=== PATIENT | female | born 1975 | race Caucasian/White ===

== ENCOUNTER 2019-02-11 14:11 | Emergency (ER) | payer OTHER ==
[~2019-02-11] VITALS: Ht 172.7 cm; Wt 118.8 kg
[~2019-02-11 14:11] MED LIST: DIOVAN160 M1 PO; LEVOXYL175 MCG PO; TOPROL XL50 MG PO
[2019-02-11] MEDS ORDERED: TRILIPIX45 MG (15:20)
== END 2019-02-11 21:10 | disposition home or self-care (01) ==
LOC: ER 14:11
DX: N20.1 Calculus of ureter (principal); N20.0 Calculus of kidney

== ENCOUNTER 2019-03-10 10:44 | Emergency (ER) | payer OTHER ==
[~2019-03-10] VITALS: Ht 165.1 cm; Wt 113.4 kg
[~2019-03-10 10:44] MED LIST changes: +TRILIPIX45 MG
[2019-03-10] MEDS ORDERED: AVAPRO300 MG (11:49)
[2019-03-10] MEDS ORDERED: GLUCOPHAGE XR750 MG (11:49)
[2019-03-10] MEDS ORDERED: AVALIDE 300-121 EACH (11:49)
== END 2019-03-10 16:17 | disposition home or self-care (01) ==
LOC: ER 10:44
DX: J11.1 Influenza due to unidentified influenza virus with other respiratory manifestations (principal)

== ENCOUNTER 2024-08-05 21:01 | Emergency (ER) | payer OTHER ==
[~2024-08-05] VITALS: Ht 160 cm; Wt 145.1 kg
[~2024-08-05 21:01] MED LIST changes: +AVALIDE 300-121 EACH; +AVAPRO300 MG; +GLUCOPHAGE XR750 MG
[2024-08-05] MEDS ORDERED: ONDANSETRON HCL 2 MG/ML VIAL ONE (21:43)
[2024-08-05] MEDS ORDERED: KETOROLAC TROMETHAMINE 60 MG VIAL IM ONE ×2 (21:43→21:45)
[2024-08-05] MEDS ORDERED: FAMOTIDINE/PF 20 MG/2 ML VIAL ONE (21:44)
[2024-08-05] MEDS ORDERED: 0.9 % SODIUM CHLORIDE 1,000 ML IV ONE (21:45)
[2024-08-05] MEDS ORDERED: ONDANSETRON HCL 2 MG/ML VIAL IV ONE (21:45)
[2024-08-05] MEDS ORDERED: FAMOtidine 10 MG/ML (4ML VIAL) IV ONE (21:45)
[2024-08-05 23:06] LABS: HEMATOCRIT 36.8 % (36.0-45.00); HEMOGLOBIN 12.1 g/dL (12.0-15.00); MEAN CELL VOLUME 89.2 fL (80.00-100.00); MEAN CORPUSCULAR HEMOGLOBIN 29.4 pg (27.00-32.0); MEAN CORPUSCULAR HGB CONC 32.9 g/dl (32.0-36.0); PLATELET COUNT 370 K/uL (150-450); RED BLOOD COUNT 4.13 M/uL (4.00-6.00); RED CELL DISTRIBUTION WIDTH 15.2 % (11.5-14.5)
[2024-08-05 23:26] LABS: ALBUMIN 3.4 gm/dL (3.4-5.0); BILIRUBIN TOTAL 0.57 mg/dL (0.3-1.2); CALCIUM 9.6 mg/dL (8.5-10.1); CREATININE SERUM 0.74 mg/dL (0.55-1.02); GFR 83.41; GLOBULINA 4.7 G/DL (2.4-3.5); POTASSIUM 3.52 mEq/L (3.5-5.1); TOTAL PROTEIN 8.1 gm/dL (6.4-8.2)
[2024-08-05] MEDS ORDERED: PEPCID AC20 MG PO (23:45)
[2024-08-05] MEDS ORDERED: ZOFRAN8 MG PO (23:45)
== END 2024-08-05 23:51 | disposition home or self-care (01) ==
LOC: ER 21:02
PROVIDERS: General Practice
DX: K29.70 Gastritis, unspecified, without bleeding (principal); E11.9 Type 2 diabetes mellitus without complications; Z79.84 Long term (current) use of oral hypoglycemic drugs; I10 Essential (primary) hypertension; E03.9 Hypothyroidism, unspecified; Z88.0 Allergy status to penicillin; Z88.8 Allergy status to other drugs, medicaments and biological substances

== ENCOUNTER 2024-09-21 15:15 | Inpatient (IN) | payer OTHER ==
[~2024-09-21] VITALS: Ht 162.6 cm; Wt 90.7 kg
[~2024-09-21 15:15] MED LIST changes: +PEPCID AC20 MG PO; +ZOFRAN8 MG PO
[2024-09-21] MEDS ORDERED: ONDANSETRON HCL 2 MG/ML VIAL IV ONE (16:30)
[2024-09-21] MEDS ORDERED: KETOROLAC TROMETHAMINE 60 MG VIAL IM ONE (16:30)
[2024-09-21] MEDS ORDERED: 0.9 % SODIUM CHLORIDE 1,000 ML IV ONE (16:30)
[2024-09-21] MEDS ORDERED: FAMOtidine 10 MG/ML (4ML VIAL) IV ONE (16:30)
[2024-09-21 16:43] LABS: HEMATOCRIT 36.8 % (36.0-45.00); HEMOGLOBIN 12.2 g/dL (12.0-15.00); MEAN CELL VOLUME 88.1 fL (80.00-100.00); MEAN CORPUSCULAR HEMOGLOBIN 29.3 pg (27.00-32.0); MEAN CORPUSCULAR HGB CONC 33.2 g/dl (32.0-36.0); PLATELET COUNT 332 K/uL (150-450); RED BLOOD COUNT 4.17 M/uL (4.00-6.00); RED CELL DISTRIBUTION WIDTH 15.4 % (11.5-14.5)
[2024-09-21 17:03] LABS: INR 1.17; PARTIAL THROMBOPLASTIN TIME 24.6 SECONDS (22.0-34.0); PROTHROMBIN TIME 12.6 SECONDS (9.0-11.5)
[2024-09-21 17:07] LABS: ALBUMIN 3.5 gm/dL (3.4-5.0); BILIRUBIN TOTAL 0.71 mg/dL (0.3-1.2); CALCIUM 9.7 mg/dL (8.5-10.1); CREATININE SERUM 0.67 mg/dL (0.55-1.02); GFR 93.55; GLOBULINA 4.4 G/DL (2.4-3.5); POTASSIUM 3.2 mEq/L (3.5-5.1); TOTAL PROTEIN 7.9 gm/dL (6.4-8.2)
[2024-09-21] MEDS ORDERED: POTASSIUM BICARBONATE/CIT AC 25 MEQ TABLET.EFF PO ONE (17:15)
[2024-09-21 19:02] LABS: URINE APPEARANCE Clear; URINE BILIRRUBIN Small (NEGATIVE); URINE BLOOD Negative; URINE COLOR Dark Yellow; URINE GLUCOSE Negative (NEGATIVE); URINE KETONE Trace (NEGATIVE); URINE LEUKOCYTE Small; URINE NITRATE Negative
[2024-09-21 19:03] LABS: URINE BACTERIA 778.5 uL (0.0-1933); URINE CAST 3.51 uL (0.0-1.40); URINE WBC 112.3 uL (0.0-23.2)
[2024-09-21 19:18] LABS: URINE MUCUS MODERATE; URINE PROTEIN 100 (NEGATIVE)
[2024-09-21] MEDS ORDERED: METRONIDAZOLE/SODIUM CHLORIDE 100 ML IV SCH (20:55)
[2024-09-21] MEDS ORDERED: KETOROLAC TROMETHAMINE 30 MG VIAL IV SCH (20:57)
[2024-09-21] MEDS ORDERED: ONDANSETRON HCL 4 MG in 0.9 % SODIUM CHLORIDE 50 ML IV PRN (21:00)
[2024-09-21] MEDS ORDERED: POTASSIUM CHLORIDE IN WATER 100 ML IV ONE (21:00)
[2024-09-21] MEDS ORDERED: 0.9 % SODIUM CHLORIDE 1,000 ML IV SCH (21:00)
[2024-09-21] MEDS ORDERED: LOSARTAN POTASSIUM 25 MG TABLET PO SCH (21:14)
[2024-09-21] MEDS ORDERED: INSULIN LISPRO 1,000 UNIT/10 ML UNITS SUBCUTANEO PRN (21:15)
[2024-09-21] MEDS ORDERED: DEXTROSE 50 % IN WATER 0.5 G/ML DISP.SYRIN IV PRN (21:15)
[2024-09-21 22:32] LABS: INR 1.15; PROTHROMBIN TIME 12.4 SECONDS (9.0-11.5)
[2024-09-21 22:43] LABS: ALBUMIN 3.7 gm/dL (3.4-5.0); BILIRUBIN TOTAL 0.79 mg/dL (0.3-1.2); BILIRUBIN,CONJUGATED 0.47 mg/dL (0.0-0.2); BILIRUBIN,UNCONJUGATED 0.32 mg/dL (0.0-0.6); TOTAL PROTEIN 7.8 gm/dL (6.4-8.2)
[2024-09-22 03:50] VITALS: BP 180/90; O2SAT 97
[2024-09-22] MEDS ORDERED: LEVOTHYROXINE SODIUM 200 MCG TABLET PO SCH (06:00)
[2024-09-22 07:25] LABS: ALBUMIN 3.1 gm/dL (3.4-5.0); BILIRUBIN TOTAL 0.74 mg/dL (0.3-1.2); CALCIUM 8.9 mg/dL (8.5-10.1); CREATININE SERUM 0.66 mg/dL (0.55-1.02); GFR 95.19; GLOBULINA 3.5 G/DL (2.4-3.5); POTASSIUM 3.33 mEq/L (3.5-5.1); TOTAL PROTEIN 6.6 gm/dL (6.4-8.2)
[2024-09-22 08:49] VITALS: BP 178/86; O2SAT 98
[2024-09-22] MEDS ORDERED: ENALAPRILAT DIHYDRATE 1.25 MG/ML VIAL IV STA (09:07)
[2024-09-22] MEDS ORDERED: ENALAPRILAT DIHYDRATE 1.25 MG/ML VIAL IV PRN (09:15)
[2024-09-22] MEDS ORDERED: DEXTROSE 5 % IN WATER 1,000 ML IV SCH (12:30)
[2024-09-22 16:08] VITALS: BP 146/75; O2SAT 97
[2024-09-23 00:22] VITALS: BP 164/77; O2SAT 98
[2024-09-23 07:14] LABS: CALCIUM 9.1 mg/dL (8.5-10.1); CREATININE SERUM 0.54 mg/dL (0.55-1.02); GFR 119.99; POTASSIUM 3.37 mEq/L (3.5-5.1)
[2024-09-23 08:00] VITALS: BP 144/82; O2SAT 96
[2024-09-23] MEDS ORDERED: POTASSIUM CHLORIDE IN WATER 100 ML IV NR (13:00)
[2024-09-23 16:00] VITALS: BP 154/70; O2SAT 97
[2024-09-24 01:10] VITALS: BP 160/85; O2SAT 98
[2024-09-24 08:44] VITALS: BP 178/80; O2SAT 97
[2024-09-24] MEDS ORDERED: METOPROLOL SUCCINATE 50 MG TAB.SR.24H PO NR (11:00)
[2024-09-24] MEDS ORDERED: IRBESARTAN 300 MG TABLET PO NR (11:00)
[2024-09-24 11:30] LABS: ALBUMIN 3.6 gm/dL (3.4-5.0); BILIRUBIN TOTAL 0.81 mg/dL (0.3-1.2); CALCIUM 9.5 mg/dL (8.5-10.1); CREATININE SERUM 0.74 mg/dL (0.55-1.02); GFR 83.41; GLOBULINA 4.7 G/DL (2.4-3.5); MAGNESIUM 1.7 mg/dL (1.8-2.4); TOTAL PROTEIN 8.3 gm/dL (6.4-8.2)
[2024-09-24 11:44] LABS: POTASSIUM 2.95 mEq/L (3.5-5.1)
[2024-09-24] MEDS ORDERED: POTASSIUM CHLORIDE 10 MEQ CAPSULE PO SCH (12:00)
[2024-09-24 16:00] VITALS: BP 121/73; O2SAT 97
[2024-09-25 01:48] VITALS: BP 137/75; O2SAT 98
[2024-09-25 06:18] LABS: HEMATOCRIT 33.1 % (36.0-45.00); HEMOGLOBIN 11.2 g/dL (12.0-15.00); MEAN CORPUSCULAR HEMOGLOBIN 29.1 pg (27.00-32.0); MEAN CORPUSCULAR HGB CONC 33.9 g/dl (32.0-36.0); PLATELET COUNT 298 K/uL (150-450); RED BLOOD COUNT 3.85 M/uL (4.00-6.00); RED CELL DISTRIBUTION WIDTH 15.7 % (11.5-14.5)
[2024-09-25 07:08] LABS: ALBUMIN 3.1 gm/dL (3.4-5.0); BILIRUBIN TOTAL 0.77 mg/dL (0.3-1.2); CALCIUM 9.1 mg/dL (8.5-10.1); CREATININE SERUM 0.51 mg/dL (0.55-1.02); GFR 128.17; GLOBULINA 3.4 G/DL (2.4-3.5); TOTAL PROTEIN 6.5 gm/dL (6.4-8.2)
[2024-09-25 08:52] VITALS: BP 139/83; O2SAT 95
[2024-09-25] MEDS ORDERED: METOPROLOL SUCCINATE 50 MG TAB.SR.24H PO SCH (09:00)
[2024-09-25] MEDS ORDERED: IRBESARTAN 150 MG TABLET PO SCH (09:00)
[2024-09-25] MEDS ORDERED: METOPROLOL SUCCINATE 25 MG TAB.SR.24H PO SCH (09:00)
[2024-09-25] MEDS ORDERED: IRBESARTAN 300 MG TABLET PO SCH (09:00)
[2024-09-25 16:03] VITALS: BP 178/90; O2SAT 95
[2024-09-25] MEDS ORDERED: FAMOTIDINE/PF 20 MG/2 ML VIAL IV SCH (17:00)
[2024-09-26 00:08] VITALS: BP 136/79; O2SAT 97
[2024-09-26 08:26] VITALS: BP 128/71; O2SAT 99
[2024-09-26 16:00] VITALS: BP 138/95; O2SAT 99
[2024-09-27 00:46] VITALS: BP 105/71; O2SAT 98
[2024-09-27 09:44] VITALS: BP 155/77; O2SAT 98
[2024-09-27] MEDS ORDERED: PANTOPRAZOLE SODIUM 40 MG TABLET.DR PO SCH (11:22)
[2024-09-27 16:18] VITALS: BP 166/81; O2SAT 97
[2024-09-27 19:00] VITALS: BP 145/84
[2024-09-28 01:02] VITALS: BP 101/55; O2SAT 95
[2024-09-28 09:35] VITALS: BP 139/66; O2SAT 98
== END 2024-09-28 13:44 | disposition home or self-care (01) | DRG 389 ==
LOC: ER 15:17 → SURH 21:15 → SURG 21:15 → SURH 09-26 10:22
PROVIDERS: General Practice; ADMIT Internal Medicine; ATTEND Internal Medicine
PROC: 0D9670Z Drainage of Stomach with Drainage Device, Via Natural or Artificial Opening (ICD-10-PCS; principal; 2024-09-21)
PROC: BW21YZZ Computerized Tomography (CT Scan) of Abdomen and Pelvis using Other Contrast (ICD-10-PCS; 2024-09-21)
PROC: 3E0336Z Introduction of Nutritional Substance into Peripheral Vein, Percutaneous Approach (ICD-10-PCS; 2024-09-22)
DX: K56.51 Intestinal adhesions [bands], with partial obstruction (principal); K43.0 Incisional hernia with obstruction, without gangrene; E66.01 Morbid (severe) obesity due to excess calories; E87.6 Hypokalemia; K29.70 Gastritis, unspecified, without bleeding; I10 Essential (primary) hypertension; E11.9 Type 2 diabetes mellitus without complications; E78.5 Hyperlipidemia, unspecified; E03.9 Hypothyroidism, unspecified; Z79.84 Long term (current) use of oral hypoglycemic drugs

== ENCOUNTER 2025-03-19 14:23 | Inpatient (IN) | payer OTHER ==
[~2025-03-19] VITALS: Ht 160 cm; Wt 109.8 kg
[2025-03-19] MEDS ORDERED: PROTONIX40 MG PO (15:04)
[2025-03-19] MEDS ORDERED: 0.9 % SODIUM CHLORIDE 500 ML IV ONE (16:15)
[2025-03-19] MEDS ORDERED: KETOROLAC TROMETHAMINE 30 MG VIAL IV ONE (16:15)
[2025-03-19] MEDS ORDERED: ONDANSETRON HCL 2 MG/ML VIAL IV ONE (16:15)
[2025-03-19] MEDS ORDERED: FAMOTIDINE/PF 20 MG/2 ML VIAL IV ONE (16:15)
[2025-03-19] MEDS ORDERED: KETOROLAC TROMETHAMINE 30 MG VIAL ONE (16:32)
[2025-03-19] MEDS ORDERED: FAMOTIDINE/PF 20 MG/2 ML VIAL ONE (16:33)
[2025-03-19 17:11] LABS: PH,URINE 7.5 (5.0-8.0); URINE APPEARANCE Clear; URINE BILIRRUBIN Negative (NEGATIVE); URINE BLOOD Negative; URINE COLOR Yellow; URINE GLUCOSE Negative (NEGATIVE); URINE KETONE Negative (NEGATIVE); URINE LEUKOCYTE Moderate; URINE NITRATE Negative; URINE PROTEIN 30 (NEGATIVE)
[2025-03-19 17:12] LABS: URINE BACTERIA 515.1 uL (0.0-1933); URINE CAST 1.47 uL (0.0-1.40); URINE EPITHELIAL CELLS 13.4 uL (0.0-38.8); URINE RBC 13.1 uL (0.0-20.8); URINE WBC 139.2 uL (0.0-23.2)
[2025-03-19 18:16] LABS: HEMATOCRIT 33.1 % (36.0-45.00); HEMOGLOBIN 11.1 g/dL (12.0-15.00); MEAN CELL VOLUME 88.9 fL (80.00-100.00); MEAN CORPUSCULAR HEMOGLOBIN 29.8 pg (27.00-32.0); MEAN CORPUSCULAR HGB CONC 33.5 g/dl (32.0-36.0); PLATELET COUNT 459 K/uL (150-450); RED BLOOD COUNT 3.72 M/uL (4.00-6.00); RED CELL DISTRIBUTION WIDTH 15.9 % (11.5-14.5)
[2025-03-19 18:43] LABS: INR 1.09; PROTHROMBIN TIME 11.8 SECONDS (9.0-11.5)
[2025-03-19 18:46] LABS: PARTIAL THROMBOPLASTIN TIME < 20.0 SECONDS (22.0-34.0)
[2025-03-19 18:54] LABS: ALBUMIN 3.6 gm/dL (3.4-5.0); BILIRUBIN TOTAL 0.49 mg/dL (0.3-1.2); CALCIUM 10.3 mg/dL (8.5-10.1); CREATININE SERUM 0.8 mg/dL (0.55-1.02); GFR 76.24; GLOBULINA 4.1 G/DL (2.4-3.5); POTASSIUM 4.22 mEq/L (3.5-5.1); TOTAL PROTEIN 7.7 gm/dL (6.4-8.2)
[2025-03-19] MEDS ORDERED: METRONIDAZOLE/SODIUM CHLORIDE 500 MG/100 ML PIGGYBACK IV ONE ×2 (19:44→19:45)
[2025-03-19] MEDS ORDERED: CIPROFLOXACIN IN 5 % DEXTROSE 400 MG/200 ML PIGGYBAG IV ONE ×2 (19:44→19:45)
[2025-03-19] MEDS ORDERED: ENALAPRILAT DIHYDRATE 1.25 MG/ML VIAL IV PRN (20:45)
[2025-03-19] MEDS ORDERED: DEXTROSE 50 % IN WATER 0.5 G/ML DISP.SYRIN IV PRN (20:45)
[2025-03-19] MEDS ORDERED: INSULIN LISPRO 1,000 UNIT/10 ML UNITS SUBCUTANEO PRN (20:45)
[2025-03-19] MEDS ORDERED: MORPHINE SULFATE 4 MG/ML CARTRIDGE IV ONE (20:45)
[2025-03-19] MEDS ORDERED: MORPHINE SULFATE 4 MG/ML CARTRIDGE IV PRN (20:45)
[2025-03-19] MEDS ORDERED: ONDANSETRON HCL 4 MG in 0.9 % SODIUM CHLORIDE 50 ML IV PRN (20:45)
[2025-03-19] MEDS ORDERED: 0.9 % SODIUM CHLORIDE 1,000 ML IV SCH (20:45)
[2025-03-19] MEDS ORDERED: CIPROFLOXACIN IN 5 % DEXTROSE 200 ML IV SCH (21:00)
[2025-03-20] MEDS ORDERED: METRONIDAZOLE/SODIUM CHLORIDE 100 ML IV SCH (01:00)
[2025-03-20 03:25] LABS: INR 1.11; PARTIAL THROMBOPLASTIN TIME 22.5 SECONDS (22.0-34.0)
[2025-03-20 03:41] LABS: COVID-19 AG NEGATIVE (NEGATIVE)
[2025-03-20] MEDS ORDERED: FAMOTIDINE/PF 20 MG in 0.9 % SODIUM CHLORIDE 8 ML IV PUSH SCH (09:00)
[2025-03-20 09:31] VITALS: BP 123/70; O2SAT 95
[2025-03-20 17:16] VITALS: BP 120/66; O2SAT 96
[2025-03-20] MEDS ORDERED: LEVALBUTEROL HCL 0.63 MG/3 ML SOLUTION IH SCH (18:00)
[2025-03-20] MEDS ORDERED: DEXTROSE 50 % IN WATER 0.5 G/ML VIAL IV PRN (19:00)
[2025-03-21 02:17] VITALS: BP 134/78; O2SAT 96
[2025-03-21 08:00] VITALS: BP 118/75
[2025-03-21 10:23] LABS: ALBUMIN 3.3 gm/dL (3.4-5.0); BILIRUBIN TOTAL 0.8 mg/dL (0.3-1.2); CALCIUM 9.2 mg/dL (8.5-10.1); CREATININE SERUM 0.7 mg/dL (0.55-1.02); GFR 88.94; GLOBULINA 4.6 G/DL (2.4-3.5); MAGNESIUM 1.7 mg/dL (1.8-2.4); PHOSPHOROUS 3.4 mg/dL (2.5-4.9); POTASSIUM 4.9 mEq/L (3.5-5.1); TOTAL PROTEIN 7.9 gm/dL (6.4-8.2)
[2025-03-21 11:00] LABS: C-REACTIVE PROTEIN 3.13 MG/DL (0.00-0.29)
[2025-03-21 15:35] VITALS: BP 133/69; O2SAT 99
[2025-03-21 20:56] LABS: HEMATOCRIT 31.5 % (36.0-45.00); HEMOGLOBIN 10.4 g/dL (12.0-15.00); MEAN CORPUSCULAR HEMOGLOBIN 29.5 pg (27.00-32.0); MEAN CORPUSCULAR HGB CONC 33.1 g/dl (32.0-36.0); PLATELET COUNT 388 K/uL (150-450); RED BLOOD COUNT 3.54 M/uL (4.00-6.00); RED CELL DISTRIBUTION WIDTH 15.7 % (11.5-14.5)
[2025-03-22 02:30] VITALS: BP 134/71; O2SAT 94
[2025-03-22 09:13] VITALS: BP 144/83; O2SAT 96
[2025-03-22] MEDS ORDERED: DEXTROSE 5 % IN WATER 1,000 ML IV SCH (16:15)
[2025-03-22 17:56] VITALS: BP 139/78; O2SAT 98
[2025-03-22] MEDS ORDERED: DEXTROSE 5 % AND 0.9 % NACL 1,000 ML IV SCH (23:45)
[2025-03-23 01:54] VITALS: BP 151/66
[2025-03-23] MEDS ORDERED: MAGNESIUM SULFATE IN WATER 50 ML IV NR (11:00)
[2025-03-23 11:30] VITALS: BP 136/75; O2SAT 95
[2025-03-23 18:03] VITALS: BP 122/71; O2SAT 100
[2025-03-23] MEDS ORDERED: METOCLOPRAMIDE HCL 5 MG/ML VIAL IV SCH (18:30)
[2025-03-24 01:09] VITALS: BP 102/59; O2SAT 94
[2025-03-24 06:45] LABS: HEMATOCRIT 28.6 % (36.0-45.00); HEMOGLOBIN 9.5 g/dL (12.0-15.00); MEAN CELL VOLUME 90.4 fL (80.00-100.00); MEAN CORPUSCULAR HEMOGLOBIN 30.1 pg (27.00-32.0); MEAN CORPUSCULAR HGB CONC 33.2 g/dl (32.0-36.0); PLATELET COUNT 364 K/uL (150-450); RED BLOOD COUNT 3.16 M/uL (4.00-6.00); RED CELL DISTRIBUTION WIDTH 15.5 % (11.5-14.5)
[2025-03-24 08:04] LABS: ALBUMIN 2.7 gm/dL (3.4-5.0); BILIRUBIN TOTAL 0.51 mg/dL (0.3-1.2); CALCIUM 8.7 mg/dL (8.5-10.1); CREATININE SERUM 0.47 mg/dL (0.55-1.02); GFR 140.84; GLOBULINA 3.3 G/DL (2.4-3.5); MAGNESIUM 1.9 mg/dL (1.8-2.4); PHOSPHOROUS 2.8 mg/dL (2.5-4.9)
[2025-03-24 08:12] LABS: C-REACTIVE PROTEIN 3.08 MG/DL (0.00-0.29); POTASSIUM 2.97 mEq/L (3.5-5.1)
[2025-03-24] MEDS ORDERED: POTASSIUM BICARBONATE/CIT AC 25 MEQ TABLET.EFF PO STA (08:55)
[2025-03-24] MEDS ORDERED: MAGNESIUM SULFATE IN WATER 2 GM/50 ML PIGGYBAG IV NR (09:00)
[2025-03-24] MEDS ORDERED: POTASSIUM CHLORIDE IN WATER 40 MEQ/100 ML PIGGYBAG IV NR (09:00)
[2025-03-24 09:29] VITALS: BP 134/78; O2SAT 99
[2025-03-24 13:53] LABS: URINE APPEARANCE Cloudy; URINE BILIRRUBIN Small (NEGATIVE); URINE BLOOD Small; URINE COLOR Dark Yellow; URINE GLUCOSE Negative (NEGATIVE); URINE KETONE Trace (NEGATIVE); URINE LEUKOCYTE Moderate; URINE NITRATE Positive; URINE PROTEIN 30 (NEGATIVE)
[2025-03-24 13:56] LABS: URINE BACTERIA 319.4 uL (0.0-1933); URINE CAST 1.47 uL (0.0-1.40); URINE RBC 117.6 uL (0.0-20.8); URINE WBC 94.5 uL (0.0-23.2)
[2025-03-24] MEDS ORDERED: POTASSIUM BICARBONATE/CIT AC 25 MEQ TABLET.EFF PO SCH (14:00)
[2025-03-24 17:24] VITALS: BP 133/85; O2SAT 100
[2025-03-24] MEDS ORDERED: SODIUM CHLORIDE 0.45 % 1,000 ML IV SCH (20:45)
[2025-03-25 01:17] VITALS: BP 147/72; O2SAT 100
[2025-03-25] MEDS ORDERED: LEVOTHYROXINE SODIUM 175 MCG TABLET PO SCH (06:00)
[2025-03-25 06:42] LABS: CALCIUM 8.2 mg/dL (8.5-10.1); CREATININE SERUM 0.6 mg/dL (0.55-1.02); GFR 106.25
[2025-03-25] MEDS ORDERED: POTASSIUM CHLORIDE 10 MEQ CAPSULE PO STA (06:52)
[2025-03-25] MEDS ORDERED: POLYETHYLENE GLYCOL 3350 17 GM BLIST.PACK PO SCH (09:00)
[2025-03-25 09:37] VITALS: BP 145/84
[2025-03-25] MEDS ORDERED: POTASSIUM CHLORIDE 10 MEQ CAPSULE PO SCH (12:00)
[2025-03-25 17:00] VITALS: BP 120/80; O2SAT 100
[2025-03-25] MEDS ORDERED: POTASSIUM CHLORIDE 10 MEQ CAPSULE PO NR (17:00)
[2025-03-26 01:33] VITALS: BP 132/78; O2SAT 100
[2025-03-26 05:46] LABS: CALCIUM 8.3 mg/dL (8.5-10.1); CREATININE SERUM 0.53 mg/dL (0.55-1.02); GFR 122.61; POTASSIUM 3.99 mEq/L (3.5-5.1)
[2025-03-26 08:30] VITALS: BP 136/90; O2SAT 99
== END 2025-03-26 13:36 | disposition home or self-care (01) | DRG 394 ==
LOC: ER 14:24 → MEDI 21:06 → SEC-K 21:06 → MEDI 03-20 00:17
PROVIDERS: Emergency Medicine; General Practice; Internal Medicine Infectious Disease; ADMIT Internal Medicine; ATTEND Internal Medicine
PROC: BW21YZZ Computerized Tomography (CT Scan) of Abdomen and Pelvis using Other Contrast (ICD-10-PCS; 2025-03-19)
PROC: 0D9670Z Drainage of Stomach with Drainage Device, Via Natural or Artificial Opening (ICD-10-PCS; principal; 2025-03-20)
PROC: 4A12X4Z Monitoring of Cardiac Electrical Activity, External Approach (ICD-10-PCS; 2025-03-20)
PROC: 3E0F7GC Introduction of Other Therapeutic Substance into Respiratory Tract, Via Natural or Artificial Opening (ICD-10-PCS; 2025-03-21)
DX: K43.6 Other and unspecified ventral hernia with obstruction, without gangrene (principal); J45.901 Unspecified asthma with (acute) exacerbation; K56.609 Unspecified intestinal obstruction, unspecified as to partial versus complete obstruction; N39.0 Urinary tract infection, site not specified; E87.6 Hypokalemia; I10 Essential (primary) hypertension; E11.9 Type 2 diabetes mellitus without complications; E03.9 Hypothyroidism, unspecified; E78.5 Hyperlipidemia, unspecified; Z79.84 Long term (current) use of oral hypoglycemic drugs